=== PATIENT | male | born 1985 | race Two or more races ===

== ENCOUNTER 2020-04-30 17:48 | Inpatient (IN) | payer MEDICARE, MEDICAID ==
[~2020-04-30] VITALS: Ht 180.3 cm; Wt 150.1 kg
[2020-04-30] MEDS ORDERED: Lactulose 20gm/30ml UDC ORAL PRN (22:15)
[2020-04-30] MEDS ORDERED: Sennosides 8.6mg tab ORAL PRN (22:15)
[2020-05-01] VITALS: BP 139/81
[2020-05-01] MEDS: HYDROmorphone 1mg/ml Carpuject IVP PRN ×5 (02:53→21:09)
[2020-05-01 04:00] VITALS: BP 133/84
[2020-05-01] MEDS: NovoLOG Insulin Flexpen SUBQ SCH ×3 (06:30→21:17)
[2020-05-01 08:00] VITALS: BP 154/92
[2020-05-01] MEDS: Metoprolol Tartrate 50mg tab ORAL SCH ×2 (08:32→21:00)
[2020-05-01] MEDS: Brimonidine 0.2% Opth Sol RIGHT EYE SCH ×2 (08:33→17:10)
[2020-05-01] MEDS: timoloL maleate 0.5% Op Soln 2.5ml RIGHT EYE SCH ×2 (08:33→17:10)
[2020-05-01] MEDS ORDERED: Levemir Flexpen SUBQ SCH (09:00)
--- NOTE | 2020-05-01 09:30 | History and Physical Report ---
DATE OF ADMISSION: 04/30/2020 CHIEF COMPLAINT: Chest pain. HISTORY OF PRESENT ILLNESS: The patient is a 35-year-old male. He has a history of end-stage renal disease and hypertension. He has a history of eye enucleation, hypertensive heart disease, gastroparesis, Charcot foot, diabetic neuropathy and nephropathy, presented from home with complaints of a near syncopal episode. The patient was apparently ambulating at his home. He became dizzy and according to the patient nearly passed out. He fell sideways on to a turtle tank, and then on to the table that the tank was on top. He sustained a laceration to the underneath of his arm, presented to the office with complaints of difficulty breathing and chest pain. Pain was excruciating and could not be controlled with pain medications and because of concern about a possible syncopal episode, he is now admitted for further evaluation and care. The patient denies any fevers or chills. He has had no cough. Denies any ill contacts. PAST MEDICAL HISTORY: As above. PAST SURGICAL HISTORY: Includes bilateral upper extremity AV fistula, eye enucleation. CURRENT MEDICATIONS: Reconciled and reviewed. ALLERGIES: Include oxycodone. FAMILY HISTORY: Significant for diabetes and stroke. SOCIAL HISTORY: Negative for tobacco, ethanol, or drugs. REVIEW OF SYSTEMS: GENERAL: No fevers or chills. HEENT: No headaches or visual changes. CARDIOPULMONARY: Positive left-sided chest pain. Mild shortness of breath. GASTROINTESTINAL: No nausea or vomiting. GENITOURINARY: No urgency or frequency. MUSCULOSKELETAL: No joint pain or swelling. NEUROLOGIC: No history of seizures. PHYSICAL EXAMINATION: VITAL SIGNS: Temperature 97.5, pulse 81, respirations 19, blood pressure 154/92. GENERAL: The patient is a well-developed male. He is significantly overweight. HEENT: Head is normocephalic and atraumatic. He does have a rash on his forehead. NECK: Supple. There is no jugular venous distention. HEART: Regular rate and rhythm without murmurs, rubs, or gallops. LUNGS: Clear to auscultation bilaterally. ABDOMEN: Soft, nontender, nondistended. EXTREMITIES: No clubbing or cyanosis. Over the left chest wall, there is noted to be ecchymosis and severe tenderness to palpation. LABORATORY DATA: Pending. ASSESSMENT: This is a 35-year-old male with a prior history of hypertension, diabetes, end-stage renal disease, and gastroparesis, admitted with near syncopal episode and fall with chest pain. PLAN: 1. Check troponin. 2. CT scan of the chest. 3. Continue outpatient blood pressure regimen. 4. IV pain medications as needed. 5. Cardiology evaluation. 6. Renal consultation for continuation of the patient's hemodialysis. Александр Sandoval M.D. DR: COURT JOB#: [id number] CC:
[2020-05-01 12:00] VITALS: BP 154/92
--- NOTE | 2020-05-01 13:45 | Diagnostic Imaging Report ---
EXAM: CT CT Chest no Contrast CLINICAL HISTORY: Chest pain. TECHNIQUE: Axial images obtained through the chest without contrast. All CT scans at this facility are performed using dose modulation techniques as appropriate to a performed exam including the following: automated exposure control with adjustment of the mA and/or kV according to patient size. RADIATION DOSE: CTDIvol: 38.70 mGy DLP: 1492.1 mGy-cm Dose information generated by the CT scanner is available in PACS. COMPARISON: None FINDINGS: Alveolar atelectasis noted medial right upper lobe. Lungs are otherwise clear. Cardiac and mediastinal structures are within normal limits. There is no pathologic size adenopathy. There is no effusion. A vascular stent identified in the right axilla. Limited images through the upper abdomen show fatty change of the liver. Right hemidiaphragm is elevated. IMPRESSION: MILD HAZY ATELECTATIC CHANGES RIGHT UPPER LUNG. NO ACUTE CARDIOPULMONARY DISEASE DEMONSTRATED.
[2020-05-01] MEDS ORDERED: HYDROmorphone 1mg/ml Carpuject IVP PRN (14:00)
[2020-05-01 16:00] VITALS: BP 158/96
[2020-05-01] MEDS ORDERED: NovoLOG Insulin Flexpen SUBQ SCH (16:30)
--- NOTE | 2020-05-01 17:30 | Consultation ---
DATE OF CONSULTATION: 05/01/2020 NEPHROLOGY CONSULTATION CONSULTING PHYSICIAN: Alex Martínez MD. REFERRING PHYSICIAN: Александр Sandoval MD. REASON FOR CONSULTATION: End-stage renal disease. HISTORY OF PRESENT ILLNESS: The patient is a 35-year-old man who has been on dialysis for about 8 years, has a history of diabetes, hypertension, and obesity. He apparently had an accidental ground-level fall and had a contusion to his chest and he is being admitted for pain management. He apparently had a laceration on the underneath of his arm. He complained of shortness of breath and chest pain when he was seen by Dr. Sandoval. There is a concern about possible syncopal episode. The patient gains large amounts of fluids and often has four to five kilos removed on each dialysis and he gets dialysis five days a week on Thursday, Thursday, , Thursday and Thursday. ALLERGIES: Oxycodone. HABITS: He was a smoker and quit several years ago. Denies alcohol or drugs. PAST SURGICAL HISTORY: Include right upper arm AV fistula, which is the current access, prior AV access in the left arm and eye surgeries bilaterally. SYSTEM REVIEW: HEAD, EYES, EARS, NOSE, AND THROAT: He is blind in his right eye. He has had diabetic retinopathy and retinal surgery and cataract surgery. Hearing is good. ENDOCRINE: Diabetes as above. No known thyroid disease. PULMONARY: Current shortness of breath, mild. No history of asthma or TB. CARDIAC: Denies angina or AK. There is a history of hypertension. GASTROINTESTINAL: No nausea, vomiting, or abdominal pain. GENITOURINARY: No dysuria or hematuria. NEUROLOGIC: No CVA or seizures. He has diabetic neuropathy and Charcot joints in the feet MUSCULOSKELETAL: No inflammatory arthritis. PHYSICAL EXAMINATION: GENERAL: The patient is alert, obese man, sitting up at the edge of the bed in no acute distress. VITAL SIGNS: Temperature 97.7, pulse 79, respirations 20, and blood pressure 154/92. HEAD EYES, EARS, NOSE, AND THROAT: There is mild periorbital edema. Ocular motions intact in all directions. Oral mucosa moist. NECK: No adenopathy. LUNGS: Clear. HEART: Regular rhythm. Distant heart sounds. No murmur heard. ABDOMEN: Soft without organomegaly or masses. He is obese. EXTREMITIES: Show trace edema. No cyanosis. SKIN: There is some scabs and scattered excoriations. NEUROLOGIC: He is alert and oriented. Moves all extremities. Cranial nerves are intact. LABORATORY AND DIAGNOSTIC DATA: Labs are pending at the time of this dictation. IMPRESSION: 1. End-stage renal disease. 2. Chronic fluid overload. 3. Insulin dependent diabetes. 4. Hypertension. 5. Obesity. 6. History of recurrent fluid overload requiring 5 times a week dialysis. 7. History of diabetic retinopathy. 8. History of diabetic neuropathy. 9. History of chest contusion. 10. Pain management. PLAN: All orders have been reviewed for end-stage renal disease. We will watch him closely in view of his comorbidities. Thank you so much. Alex Martínez M.D. DR: LAURO JOB#: [id number] CC:
[2020-05-01] MEDS: Levemir Flexpen SUBQ SCH (18:32)
[2020-05-01 20:00] VITALS: BP 162/91
[2020-05-01] MEDS ORDERED: Heparin 5000 units/ml inj SUBQ SCH (21:00)
[2020-05-01 23:20] LABS: BASOPHILS % (AUTO) 1.1 % (0.0-2.0); EOSINOPHILS % (AUTO) 2.8 % (0.0-3.0); HEMATOCRIT 42.3 % (42.0-52.0); HEMOGLOBIN 13.7 G/DL (14.2-18.0); LYMPHOCYTES % (AUTO) 14.6 % (20.0-45.0); MEAN CORPUSCULAR VOLUME 104 FL (80-99); MONOCYTES % (AUTO) 8.9 % (1.0-10.0); NEUTROPHILS % (AUTO) 72.7 % (45.0-75.0); PLATELET COUNT 235 K/UL (150-450); RED BLOOD COUNT 4.07 M/UL (4.70-6.10); RED CELL DISTRIBUTION WIDTH 15.1 % (11.6-14.8); WHITE BLOOD COUNT 10.3 K/UL (4.8-10.8)
[2020-05-01 23:28] LABS: ANION GAP 14 mmol/L (5-15); BLOOD UREA NITROGEN 85 mg/dL (7-18); CALCIUM 8.9 MG/DL (8.5-10.1); CARBON DIOXIDE 26 MMOL/L (21-32); CHLORIDE 92 MMOL/L (98-107); CREATININE 14.1 MG/DL (0.55-1.30); POTASSIUM 4.9 MMOL/L (3.5-5.1); SODIUM 132 MMOL/L (136-145)
[2020-05-02] VITALS: BP 135/73
--- NOTE | 2020-05-02 01:12 | Cardiology Progress Note ---
Subjective DATE OF SERVICE: May 01, [address] chest reveals right lung atelectasis. Has Chest pain with and without movement and still c/o SOB. Objective Last 24 Hour Vital Signs Date Time Temp Pulse Resp B/P (MAP) Pulse Ox O2 Delivery O2 Flow Rate FiO2 05/02/20 00:00 97.3 82 24 135/73 (93) 96 05/01/20 21:00 Room Air 05/01/20 21:00 83 162/91 05/01/20 20:00 97.3 83 24 162/91 (114) 95 05/01/20 16:00 98.2 78 20 158/96 (116) 96 05/01/20 12:00 97.7 79 20 154/92 (112) 96 05/01/20 09:00 Room Air 05/01/20 08:32 81 154/92 05/01/20 08:00 97.5 81 19 154/92 (112) 96 05/01/20 04:00 98.0 92 18 133/84 (100) 98 HEENT: normal ENT inspection, other - blind LUNGS: no respiratory distress, diminished breath sounds - right CARDIAC: normal rate, regular rhythm, normal S1 and S2 ABDOMEN: normal bowel sounds, non tender, soft, no organomegaly EXTREMITIES: normal range of motion, non-tender, other - Bruit palpable over left upper extremity AV fistula Laboratory Tests Test 05/01/20 23:00 White Blood Count 10.3 K/UL (4.8-10.8) Red Blood Count 4.07 M/UL (4.70-6.10) L Hemoglobin 13.7 G/DL (14.2-18.0) L Hematocrit 42.3 % (42.0-52.0) Mean Corpuscular Volume 104 FL (80-99) H Mean Corpuscular Hemoglobin 33.6 PG (27.0-31.0) H Mean Corpuscular Hemoglobin Concent 32.4 G/DL (32.0-36.0) Red Cell Distribution Width 15.1 % (11.6-14.8) H Platelet Count 235 K/UL (150-450) Mean Platelet Volume 9.5 FL (6.5-10.1) Neutrophils (%) (Auto) 72.7 % (45.0-75.0) Lymphocytes (%) (Auto) 14.6 % (20.0-45.0) L Monocytes (%) (Auto) 8.9 % (1.0-10.0) Eosinophils (%) (Auto) 2.8 % (0.0-3.0) Basophils (%) (Auto) 1.1 % (0.0-2.0) Sodium Level 132 MMOL/L (136-145) L Potassium Level 4.9 MMOL/L (3.5-5.1) Chloride Level 92 MMOL/L (98-107) L Carbon Dioxide Level 26 MMOL/L (21-32) Anion Gap 14 mmol/L (5-15) Blood Urea Nitrogen 85 mg/dL (7-18) H Creatinine 14.1 MG/DL (0.55-1.30) H Estimat Glomerular Filtration Rate 4.0 mL/min (>60) Glucose Level 248 MG/DL (74-106) H Calcium Level 8.9 MG/DL (8.5-10.1) Hepatitis B Surface Antigen Pending Hepatitis C Antibody Pending Assessment/Plan Assessment/Plan Suspected orthostatic near-syncope Chest wall contusion - possible cardiac contusion ESRD Hypertension/HHD Blindness IRDM with multiple complications Functional LUE AV fistula Pain control Avoid orthostatic potential and low BP; consider fluid challenge. HD/UF Insulin titration PT/OT Vahid Owusu MD May 02, 2020 01:12
--- NOTE | 2020-05-02 01:45 | Consultation ---
DATE OF CONSULTATION: 04/30/2020 CARDIOLOGY CONSULTATION CONSULTING PHYSICIAN: Vahid Owusu MD. REQUESTING PHYSICIAN: Александр Sandoval MD. REASON FOR CONSULTATION: Chest pain following chest wall contusion sustained due to a syncopal episode. HISTORY OF PRESENT ILLNESS: This is a 35-year-old male with insulin-requiring diabetes mellitus complicated with end-stage renal disease and blindness sustained a near syncopal episode. He describes this as dizziness, while ambulating he nearly passed out. He fell sideways and onto turtle tank and subsequently onto a table. He sustained lacerations under his left arm with trauma to his chest wall and subsequently had difficulty breathing and persisting pain. The pain could not be controlled with oral therapy. The patient denied any subsequent dizzy spells or loss of consciousness. I have been asked to assist with cardiovascular care at this time. The patient has a history of hypertension and orthostatics symptoms. He has had hypotensive episodes following dialysis at times as well as autonomic dysfunction due to his brittle diabetes. He has had outpatient echocardiogram within the last several months that revealed a normal ejection fraction, concentric left ventricular hypertrophy, and diastolic relaxation abnormality. There is no history of cardiac arrhythmias, rheumatic heart disease, endocarditis, obstructive coronary artery disease. He does have accelerated atherosclerosis due to his advanced diabetes. PAST MEDICAL HISTORY: Insulin-requiring diabetes mellitus, right eye enucleation, retinopathy with blindness, diabetic nephropathy with end-stage renal disease on hemodialysis, hypertensive heart disease, orthostatic hypotension, diabetic neuropathy with gastroparesis, Charcot foot, history of multiple prior AV fistulas, current right upper extremity AV fistula is functional, left upper extremity AV fistula site is nonfunctional. SOCIAL HISTORY: Prior smoker. Quit several years ago. No alcohol or substance abuse. Lives with his mother. FAMILY HISTORY: Notable for brittle diabetes in all his family members. ALLERGIES: Include oxycodone. MEDICATIONS: Medications prior to admission reviewed and reconciled. REVIEW OF SYSTEMS: He is legally blind. His hearing is good. His diabetes is brittle with multiple complications. He has been on anti-lipid therapy. There is no history of thyroid disorder. There is no history of asthma or abnormal blood clotting. He is dialyzed five times a week. He has not had any change in bowel habits. There is no history of seizure or stroke. He has had Charcot joint of his feet. PHYSICAL EXAMINATION: GENERAL: Moderately obese, appears older than stated age, in moderate distress due to pain. VITAL SIGNS: Afebrile, blood pressure 139/81, pulse 99, respiratory rate 17. HEENT: Blindness. Rash on forehead. NECK: Supple. LUNGS: Clear with splinting. CARDIAC: Regular. Normal S1, S2 with no murmur, rub, or gallop. ABDOMEN: Soft. EXTREMITIES: No edema. Left chest wall has ecchymoses and tenderness to palpation. DIAGNOSTIC DATA: EKG is pending. IMPRESSION: 1. Chest wall contusion. 2. Near syncopal episode likely orthostatic related, rule out cardiac contusion. 3. End-stage renal disease. 4. Blindness. 5. Insulin-requiring diabetes with multiple complications. 6. History of hypertension and hypertensive heart disease. 7. Accelerated atherosclerosis. PLAN: 1. Pain control. 2. Respiratory hygiene. 3. CT scan of the chest. 4. Review EKG. 5. Consider echocardiogram. 6. Titrate insulin regimen. 7. Monitor orthostatics. 8. Maintain adequate hydration with adjustment of ultrafiltration. Vahid Owusu M.D. DR: uYnior JOB#: [id number] CC:
[2020-05-02] MEDS: HYDROmorphone 1mg/ml Carpuject IVP PRN ×5 (02:50→22:37)
[2020-05-02 04:00] VITALS: BP 141/90
[2020-05-02] MEDS: NovoLOG Insulin Flexpen SUBQ SCH ×4 (06:35→21:00)
[2020-05-02 08:00] VITALS: BP 146/89
[2020-05-02] MEDS: Metoprolol Tartrate 50mg tab ORAL SCH ×2 (09:00→21:00)
[2020-05-02] MEDS ORDERED: Brimonidine 0.2% Opth Sol RIGHT EYE SCH (09:00)
[2020-05-02] MEDS ORDERED: timoloL maleate 0.5% Op Soln 2.5ml RIGHT EYE SCH (09:00)
[2020-05-02] MEDS ORDERED: Heparin 5000 units/ml inj SUBQ SCH (09:00)
[2020-05-02] MEDS: Levemir Flexpen SUBQ SCH ×2 (09:10→17:15)
--- NOTE | 2020-05-02 10:57 | Nephrology Progress Note ---
Assessment/Plan Problem List: (1) Obstructive sleep apnea (2) Morbid obesity due to excess calories (3) Nephropathy due to secondary diabetes (4) CHF (congestive heart failure) (5) End stage kidney disease (6) Contusion Plan continue with frequent dialysis as chronic fluid overload, cpap, pain regimen per dr newell Subjective Constitutional: Reports: weakness HEENT: Reports: no symptoms Genitourinary: Reports: no symptoms Neurologic/Psychiatric: Reports: no symptoms Objective Objective Last 24 Hour Vital Signs Date Time Temp Pulse Resp B/P (MAP) Pulse Ox O2 Delivery O2 Flow Rate FiO2 05/02/20 09:00 81 146/89 05/02/20 08:00 98.1 81 20 146/89 (108) 95 05/02/20 04:00 97.7 84 20 141/90 (107) 95 05/02/20 00:00 97.3 82 24 135/73 (93) 96 05/01/20 21:00 Room Air 05/01/20 21:00 83 162/91 05/01/20 20:00 97.3 83 24 162/91 (114) 95 05/01/20 16:00 98.2 78 20 158/96 (116) 96 05/01/20 12:00 97.7 79 20 154/92 (112) 96 Intake and Output 05/01/20 05/02/20 19:00 07:00 Intake Total 1200 ml 700 ml Output Total 5000 ml Balance 1200 ml -4300 ml Intake Oral 1200 ml 700 ml Output Hemodialysis UF 5000 ml # Voids 5 2 Laboratory Tests 05/01/20 23:00: White Blood Count 10.3, Red Blood Count 4.07L, Hemoglobin 13.7L, Hematocrit 42.3 , Mean Corpuscular Volume 104H, Mean Corpuscular Hemoglobin 33.6H, Mean Corpuscular Hemoglobin Concent 32.4, Red Cell Distribution Width 15.1H, Platelet Count 235, Mean Platelet Volume 9.5, Neutrophils (%) (Auto) 72.7, Lymphocytes (%) (Auto) 14.6L, Monocytes (%) (Auto) 8.9, Eosinophils (%) (Auto) 2.8, Basophils (%) (Auto) 1.1, Sodium Level 132L, Potassium Level 4.9, Chloride Level 92L, Carbon Dioxide Level 26, Anion Gap 14, Blood Urea Nitrogen 85H, Creatinine 14.1H, Estimat Glomerular Filtration Rate 4.0, Glucose Level 248H, Calcium Level 8.9, Hepatitis B Surface Antigen [Pending], Hepatitis C Antibody [ Pending] Height (Feet): 5 Height (Inches): 11.00 Weight (Pounds): 324 General Appearance: no apparent distress, obese, morbidly obese EENT: normal ENT inspection Neck: normal alignment Cardiovascular: regular rhythm Respiratory/Chest: lungs clear Abdomen: non tender Extremities: no edema 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
[2020-05-02 12:00] VITALS: BP 137/85
--- NOTE | 2020-05-02 14:18 | General Progress Note ---
Assessment/Plan Problem List: (1) End stage kidney disease ICD Codes: N18.6 - End stage renal disease SNOMED: 02943887 (2) Contusion ICD Codes: T14.8XXA - Other injury of unspecified body region, initial encounter SNOMED: 692856333 (3) CHF (congestive heart failure) ICD Codes: I50.9 - Heart failure, unspecified SNOMED: 44735935 (4) Obstructive sleep apnea ICD Codes: G47.33 - Obstructive sleep apnea (adult) (pediatric) SNOMED: 57531042 (5) Nephropathy due to secondary diabetes ICD Codes: E13.21 - Other specified diabetes mellitus with diabetic nephropathy SNOMED: 8809243, 356150490 (6) Morbid obesity due to excess calories ICD Codes: E66.01 - Morbid (severe) obesity due to excess calories SNOMED: 510854568, 382010241 Status: stable Assessment/Plan: Patient continues to have severe pain. Required IV pain medications around-the- clock. CT scan shows no evidence of any fracture. Will check a troponin placed on monitor. Check a venous duplex of the legs to rule out DVT consider VQ scan of the chest rule out PE cardiology follow-up. Dialysis per renal. Subjective ROS Limited/Unobtainable: No Constitutional: Reports: malaise, weakness HEENT: Reports: no symptoms Cardiovascular: Reports: chest pain Respiratory: Reports: cough, shortness of breath Gastrointestinal/Abdominal: Reports: no symptoms Genitourinary: Reports: no symptoms Neurologic/Psychiatric: Reports: no symptoms Endocrine: Reports: no symptoms Hematologic/Lymphatic: Reports: no symptoms Allergies: Coded Allergies: ACETAMINOPHEN (Verified Allergy, Mild, 04/30/20) OXYCODONE (Verified Allergy, Mild, 04/30/20) All Systems: reviewed and negative except above Subjective Patient continues to complain of left-sided chest pain and shortness of breath. Denies fevers or chills. No cough or congestion. Tolerated HD without incident. Requiring IV pain medications [id number] Objective Last 24 Hour Vital Signs Date Time Temp Pulse Resp B/P (MAP) Pulse Ox O2 Delivery O2 Flow Rate FiO2 05/02/20 12:00 97.0 75 20 137/85 (102) 95 05/02/20 09:00 Room Air 05/02/20 09:00 81 146/89 05/02/20 08:00 98.1 81 20 146/89 (108) 95 05/02/20 04:00 97.7 84 20 141/90 (107) 95 05/02/20 00:00 97.3 82 24 135/73 (93) 96 05/01/20 21:00 Room Air 05/01/20 21:00 83 162/91 05/01/20 20:00 97.3 83 24 162/91 (114) 95 05/01/20 16:00 98.2 78 20 158/96 (116) 96 Intake and Output 05/01/20 05/02/20 19:00 07:00 Intake Total 1200 ml 700 ml Output Total 5000 ml Balance 1200 ml -4300 ml Intake Oral 1200 ml 700 ml Output Hemodialysis UF 5000 ml # Voids 5 2 Laboratory Tests 05/01/20 23:00: White Blood Count 10.3, Red Blood Count 4.07L, Hemoglobin 13.7L, Hematocrit 42.3 , Mean Corpuscular Volume 104H, Mean Corpuscular Hemoglobin 33.6H, Mean Corpuscular Hemoglobin Concent 32.4, Red Cell Distribution Width 15.1H, Platelet Count 235, Mean Platelet Volume 9.5, Neutrophils (%) (Auto) 72.7, Lymphocytes (%) (Auto) 14.6L, Monocytes (%) (Auto) 8.9, Eosinophils (%) (Auto) 2.8, Basophils (%) (Auto) 1.1, Sodium Level 132L, Potassium Level 4.9, Chloride Level 92L, Carbon Dioxide Level 26, Anion Gap 14, Blood Urea Nitrogen 85H, Creatinine 14.1H, Estimat Glomerular Filtration Rate 4.0, Glucose Level 248H, Calcium Level 8.9, Hepatitis B Surface Antigen Negative, Hepatitis C Antibody [ Pending] Height (Feet): 5 Height (Inches): 11.00 Weight (Pounds): 324 General Appearance: WD/WN, alert Neck: supple Cardiovascular: normal peripheral pulses, normal rate Respiratory/Chest: lungs clear, normal breath sounds, no respiratory distress, no accessory muscle use Abdomen: normal bowel sounds, non tender, soft, no organomegaly Edema: no edema noted Arm (L), no edema noted Arm (R) Александр Sandoval MD May 02, 2020 14:18
[2020-05-02 16:00] VITALS: BP 138/87
[2020-05-02] MEDS ORDERED: Heparin Sod 1000 units/ml 10ml IV PRN (16:00)
[2020-05-02] MEDS ORDERED: Sennosides 8.6mg tab ORAL PRN (16:00)
[2020-05-02] MEDS ORDERED: Lactulose 20gm/30ml UDC ORAL PRN (18:00)
[2020-05-02 20:00] VITALS: BP 99/53
[2020-05-02] MEDS: Brimonidine 0.2% Opth Sol RIGHT EYE SCH (21:13)
[2020-05-02] MEDS: timoloL maleate 0.5% Op Soln 2.5ml RIGHT EYE SCH (21:14)
[2020-05-03] VITALS: BP 108/53
--- NOTE | 2020-05-03 01:27 | Cardiology Progress Note ---
Subjective DATE OF SERVICE: May 02, 2020 Still with left sided chest pain and SOB. Hypotensive during HD/UF and req'd fluid challenges. CT chest reveals right lung atelectasis. Objective Last 24 Hour Vital Signs Date Time Temp Pulse Resp B/P (MAP) Pulse Ox O2 Delivery O2 Flow Rate FiO2 05/03/20 00:00 78 05/03/20 00:00 98.1 85 14 108/53 (71) 95 05/02/20 21:00 Room Air 05/02/20 21:00 84 99/53 05/02/20 20:00 98.1 84 14 99/53 (68) 97 05/02/20 20:00 85 05/02/20 16:00 96.7 76 20 138/87 (104) 98 05/02/20 16:00 78 05/02/20 12:00 97.0 75 20 137/85 (102) 95 05/02/20 09:00 Room Air 05/02/20 09:00 81 146/89 05/02/20 08:00 98.1 81 20 146/89 (108) 95 05/02/20 04:00 97.7 84 20 141/90 (107) 95 HEENT: normal ENT inspection, other - blind LUNGS: no respiratory distress, diminished breath sounds - right CARDIAC: normal rate, regular rhythm, normal S1 and S2 ABDOMEN: normal bowel sounds, non tender, soft, no organomegaly EXTREMITIES: normal range of motion, non-tender, other - Bruit palpable over left upper extremity AV fistula Laboratory Tests Test 05/02/20 15:58 05/02/20 16:05 POC Whole Blood Glucose 232 MG/DL (74-106) H Troponin I 0.000 ng/mL (0.000-0.056) Assessment/Plan Assessment/Plan Suspected orthostatic near-syncope Hypotension suggests hypovolemic shock Chest wall contusion ESRD Hypertension/HHD Blindness IRDM with multiple complications Functional LUE AV fistula Possible cardiac contusion Pain control Avoid orthostatic potential and hypotension HD/UF Insulin titration Fluid challenge as needed Check EKG and 2D Echo PT/OT Vahid Owusu MD May 03, 2020 01:27
[2020-05-03] MEDS: HYDROmorphone 1mg/ml Carpuject IVP PRN ×5 (02:57→21:53)
[2020-05-03 04:00] VITALS: BP 147/90
[2020-05-03] MEDS: NovoLOG Insulin Flexpen SUBQ SCH ×4 (06:29→21:41)
[2020-05-03 08:00] VITALS: BP 178/103
[2020-05-03] MEDS: Metoprolol Tartrate 50mg tab ORAL SCH ×2 (08:28→21:00)
[2020-05-03] MEDS: timoloL maleate 0.5% Op Soln 2.5ml RIGHT EYE SCH ×2 (08:32→21:33)
[2020-05-03] MEDS: Brimonidine 0.2% Opth Sol RIGHT EYE SCH ×2 (08:32→21:34)
[2020-05-03] MEDS: Levemir Flexpen SUBQ SCH ×2 (08:35→17:00)
[2020-05-03] MEDS: Heparin 5000 units/ml inj SUBQ SCH ×2 (08:37→21:37)
--- NOTE | 2020-05-03 10:08 | Diagnostic Imaging Report ---
Indication: Reason For Exam: Bilateral leg pain Technique: Venous Duplex Scan Hugo Leg Comparison: None. Findings: Duplex and compression ultrasound of the lower extremity veins demonstrates the femoral and popliteal veins to be normal in caliber and normally compressible. There is no evidence of thrombosis. Normal respiratory variation and augmentation is noted. Ultrasound of the calf veins bilaterally demonstrates no gross abnormality but veins are not visualized. Impression: No evidence of thrombosis in the femoral or popliteal veins. No gross evidence of thrombus in the calf veins
[2020-05-03] MEDS ORDERED: Heparin Sod 1000 units/ml 10ml IV SCH (11:00)
--- NOTE | 2020-05-03 11:37 | Nephrology Progress Note ---
Assessment/Plan Problem List: (1) Obstructive sleep apnea (2) Morbid obesity due to excess calories (3) Nephropathy due to secondary diabetes (4) CHF (congestive heart failure) (5) End stage kidney disease (6) Contusion Plan continue with frequent dialysis as chronic fluid overload, cpap, pain regimen per dr newell Subjective Constitutional: Reports: weakness HEENT: Reports: no symptoms Genitourinary: Reports: no symptoms Neurologic/Psychiatric: Reports: no symptoms Objective Objective Last 24 Hour Vital Signs Date Time Temp Pulse Resp B/P (MAP) Pulse Ox O2 Delivery O2 Flow Rate FiO2 05/03/20 08:28 83 147/90 05/03/20 08:19 Room Air 05/03/20 08:00 97.9 79 21 178/103 (128) 98 05/03/20 08:00 83 05/03/20 04:07 75 05/03/20 04:00 97.7 80 14 147/90 (109) 95 05/03/20 00:00 78 05/03/20 00:00 98.1 85 14 108/53 (71) 95 05/02/20 21:00 Room Air 05/02/20 21:00 84 99/53 05/02/20 20:00 98.1 84 14 99/53 (68) 97 05/02/20 20:00 85 05/02/20 16:00 96.7 76 20 138/87 (104) 98 05/02/20 16:00 78 05/02/20 12:00 97.0 75 20 137/85 (102) 95 Intake and Output 05/02/20 05/03/20 19:00 07:00 Intake Total 1080 ml 600 ml Balance 1080 ml 600 ml Intake Oral 1080 ml 600 ml Laboratory Tests 05/02/20 15:58: POC Whole Blood Glucose 232H 05/02/20 16:05: Troponin I 0.000 Height (Feet): 5 Height (Inches): 11.00 Weight (Pounds): 315 General Appearance: no apparent distress, morbidly obese EENT: normal ENT inspection Neck: normal alignment Cardiovascular: regular rhythm Respiratory/Chest: lungs clear Abdomen: soft Extremities: no edema 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
[2020-05-03 12:00] VITALS: BP 155/96
[2020-05-03 16:00] VITALS: BP 179/100
[2020-05-03 20:00] VITALS: BP 121/67
--- NOTE | 2020-05-03 21:24 | General Progress Note ---
Assessment/Plan Problem List: (1) End stage kidney disease ICD Codes: N18.6 - End stage renal disease SNOMED: 34831850 (2) Contusion ICD Codes: T14.8XXA - Other injury of unspecified body region, initial encounter SNOMED: 437351497 (3) CHF (congestive heart failure) ICD Codes: I50.9 - Heart failure, unspecified SNOMED: 69621851 (4) Obstructive sleep apnea ICD Codes: G47.33 - Obstructive sleep apnea (adult) (pediatric) SNOMED: 72727530 (5) Nephropathy due to secondary diabetes ICD Codes: E13.21 - Other specified diabetes mellitus with diabetic nephropathy SNOMED: 5010853, 061450902 (6) Morbid obesity due to excess calories ICD Codes: E66.01 - Morbid (severe) obesity due to excess calories SNOMED: 009948208, 536684062 Status: stable Assessment/Plan: Patient continues to have severe pain. Required IV pain medications around-the- clock. CT scan shows no evidence of any fracture. Will check a troponin placed on monitor. Check a venous duplex of the legs to rule out DVT consider VQ scan of the chest rule out PE cardiology follow-up. Dialysis per renal. Subjective ROS Limited/Unobtainable: No Constitutional: Reports: weakness HEENT: Reports: no symptoms Cardiovascular: Reports: chest pain Respiratory: Reports: shortness of breath Gastrointestinal/Abdominal: Reports: no symptoms Genitourinary: Reports: no symptoms Neurologic/Psychiatric: Reports: no symptoms Endocrine: Reports: no symptoms Hematologic/Lymphatic: Reports: no symptoms Allergies: Coded Allergies: ACETAMINOPHEN (Verified Allergy, Mild, 04/30/20) OXYCODONE (Verified Allergy, Mild, 04/30/20) All Systems: reviewed and negative except above Subjective continued chest pain. +sob with inspiration. requiring iv pain meds ATC for pain control. no fevers. troponin neg. Objective Last 24 Hour Vital Signs Date Time Temp Pulse Resp B/P (MAP) Pulse Ox O2 Delivery O2 Flow Rate FiO2 05/03/20 16:00 88 05/03/20 16:00 97.4 86 19 179/100 (126) 97 05/03/20 12:00 97.1 80 20 155/96 (115) 97 05/03/20 12:00 81 05/03/20 08:28 83 147/90 05/03/20 08:19 Room Air 05/03/20 08:00 97.9 79 21 178/103 (128) 98 05/03/20 08:00 83 05/03/20 04:07 75 05/03/20 04:00 97.7 80 14 147/90 (109) 95 05/03/20 00:00 78 05/03/20 00:00 98.1 85 14 108/53 (71) 95 Intake and Output 05/02/20 05/03/20 19:00 07:00 Intake Total 1080 ml 600 ml Balance 1080 ml 600 ml Intake Oral 1080 ml 600 ml Height (Feet): 5 Height (Inches): 11.00 Weight (Pounds): 315 Objective General Appearance: WD/WN, alert Neck: supple Cardiovascular: normal peripheral pulses, normal rate Respiratory/Chest: lungs clear, normal breath sounds, no respiratory distress, no accessory muscle use Abdomen: normal bowel sounds, non tender, soft, no organomegaly Edema: no edema noted Arm (L), no edema noted Arm (R) Александр Sandoval MD May 03, 2020 21:24
[2020-05-04] VITALS (7 sets, daily range): BP systolic 121–167; BP diastolic 57–104
[2020-05-04] MEDS ORDERED: HydrALAZINE 25mg tab ORAL PRN (00:45)
--- NOTE | 2020-05-04 00:48 | Cardiology Progress Note ---
Subjective Still with pain requiring IV medx. BP lability persists. 2DEcho with small amount of right sided pericardial fluid. CT chest reveals right lung atelectasis. Has Chest pain with and without movement and still c/o SOB. Objective Last 24 Hour Vital Signs Date Time Temp Pulse Resp B/P (MAP) Pulse Ox O2 Delivery O2 Flow Rate FiO2 05/04/20 00:00 97.9 72 20 131/72 (91) 95 05/03/20 22:23 97.4 05/03/20 21:00 82 124/73 05/03/20 20:00 97.1 82 20 121/67 (85) 96 05/03/20 16:00 88 05/03/20 16:00 97.4 86 19 179/100 (126) 97 05/03/20 12:00 97.1 80 20 155/96 (115) 97 05/03/20 12:00 81 05/03/20 08:28 83 147/90 05/03/20 08:19 Room Air 05/03/20 08:00 97.9 79 21 178/103 (128) 98 05/03/20 08:00 83 05/03/20 04:07 75 05/03/20 04:00 97.7 80 14 147/90 (109) 95 HEENT: normal ENT inspection, other - blind LUNGS: no respiratory distress, diminished breath sounds - right CARDIAC: normal rate, regular rhythm, normal S1 and S2 ABDOMEN: normal bowel sounds, non tender, soft, no organomegaly EXTREMITIES: normal range of motion, non-tender, other - Bruit palpable over left upper extremity AV fistula Assessment/Plan Assessment/Plan Suspected orthostatic near-syncope Chest wall contusion - possible cardiac contusion Pericardial effusion may be secondary to cardiac contusion ESRD Hypertension/HHD - hypertensive urgency Blindness IRDM with multiple complications Functional LUE AV fistula Pain control Add prn antiHTN therapy HD/UF Insulin titration PT/OT Vahid Owusu MD May 04, 2020 00:48
[2020-05-04] MEDS: HYDROmorphone 1mg/ml Carpuject IVP PRN ×5 (02:26→22:34)
[2020-05-04] MEDS ORDERED: Heparin Sod 1000 units/ml 10ml IV PRN (06:00)
[2020-05-04] MEDS: NovoLOG Insulin Flexpen SUBQ SCH ×4 (06:45→21:00)
[2020-05-04] MEDS: Metoprolol Tartrate 50mg tab ORAL SCH ×2 (08:35→22:23)
[2020-05-04] MEDS: Heparin 5000 units/ml inj SUBQ SCH ×2 (08:36→21:00)
[2020-05-04] MEDS: Levemir Flexpen SUBQ SCH ×2 (08:37→17:20)
[2020-05-04] MEDS: Brimonidine 0.2% Opth Sol RIGHT EYE SCH ×2 (09:21→22:21)
[2020-05-04] MEDS: timoloL maleate 0.5% Op Soln 2.5ml RIGHT EYE SCH ×2 (09:22→22:21)
--- NOTE | 2020-05-04 10:10 | Nephrology Progress Note ---
Assessment/Plan Problem List: (1) Obstructive sleep apnea (2) Morbid obesity due to excess calories (3) Nephropathy due to secondary diabetes (4) CHF (congestive heart failure) (5) End stage kidney disease (6) Contusion Plan continue with frequent dialysis as chronic fluid overload,UF -4000 last pm, cpap, pain regimen per dr newell, low grade temp states he has chronic dental infection and r foot wound seen regularly by plastic molder Subjective Constitutional: Reports: other - chest discomfort HEENT: Reports: no symptoms Genitourinary: Reports: no symptoms Neurologic/Psychiatric: Reports: no symptoms Objective Objective Last 24 Hour Vital Signs Date Time Temp Pulse Resp B/P (MAP) Pulse Ox O2 Delivery O2 Flow Rate FiO2 05/04/20 09:00 Room Air 05/04/20 08:35 89 134/89 05/04/20 08:11 97.6 05/04/20 08:00 91 05/04/20 08:00 99.4 91 18 167/104 (125) 97 05/04/20 04:00 82 05/04/20 04:00 97.6 78 18 141/80 (100) 96 05/04/20 00:00 75 05/04/20 00:00 97.9 72 20 131/72 (91) 95 05/03/20 21:00 82 124/73 05/03/20 21:00 Room Air 05/03/20 20:00 97.1 82 20 121/67 (85) 96 05/03/20 20:00 81 05/03/20 16:00 88 05/03/20 16:00 97.4 86 19 179/100 (126) 97 05/03/20 12:00 97.1 80 20 155/96 (115) 97 05/03/20 12:00 81 Intake and Output 05/03/20 05/04/20 19:00 07:00 Intake Total 960 ml 800 ml Output Total 4000 ml Balance 960 ml -3200 ml Intake Oral 960 ml 800 ml Output Hemodialysis UF 4000 ml Height (Feet): 5 Height (Inches): 11.00 Weight (Pounds): 322 General Appearance: no apparent distress, morbidly obese EENT: normal ENT inspection Neck: normal alignment Cardiovascular: regular rhythm Respiratory/Chest: lungs clear Abdomen: soft Extremities: no edema Alex Martínez MD May 04, 2020 10:10
--- NOTE | 2020-05-04 10:54 | Diagnostic Imaging Report ---
EXAM: NUCLEAR MEDICINE VENTILATION/PERFUSION SCAN. CLINICAL HISTORY: Chest pain and shortness of breath.. COMPARISON: None TECHNIQUE: Ventilation/perfusion studies performed. 44 mCi of technetium 99 DTPA is used for the ventilation portion. 5.5 mCi technetium 99 MAA was used for the perfusion portion. SPECT images are obtained in multiple planes. FINDINGS: There is homogeneous uptake identified in both ventilation and perfusion images. There is no perfusion defect or mismatch identified. Cardiac silhouette is within normal limits. There is no effusion. IMPRESSION: Unremarkable V/Q exam. No scintigraphic evidence of pulmonary embolism.
--- NOTE | 2020-05-04 12:01 | Consultation ---
History of Present Illness General Date patient seen: May 04, 2020 Present Illness HPI This is a 35-year-old with end-stage renal disease hypertension on dialysis through right arm fistula with known podiatry lower extremity that had a syncopal episode presented to [facility] for evaluation. Patient has been admitted for medical care and management is been improving since. Identified to have a abnormal wound on his right lower extremity foot therefore surgery was called to evaluate and assist with care. Patient seen, patient evaluated, chart reviewed. Denies any nausea vomiting fever chills at this time. States hemodialysis going well and he feels better. States he is been ambulating on the foot but does understand to minimize pressure on affected areas. Attempts to receive care as an outpatient. Labs noted imaging reviewed. Allergies: Coded Allergies: ACETAMINOPHEN (Verified Allergy, Mild, 04/30/20) OXYCODONE (Verified Allergy, Mild, 04/30/20) COVID-19 Screening Contact w/high risk pt: No Experienced COVID-19 symptoms?: No Patient History History Provided By: Patient, Medical Record, PMD Healthcare decision maker Resuscitation status Advanced Directive on File Past Medical/Surgical History Past Medical/Surgical History: (1) End stage kidney disease (2) Contusion (3) CHF (congestive heart failure) (4) Obstructive sleep apnea (5) Nephropathy due to secondary diabetes (6) Morbid obesity due to excess calories Review of Systems Review of Symptoms General ROS: no weight loss or fever Psychological ROS: no depression or mood changes, no memory loss Ophthalmic ROS: no visual changes or eye irritation ENT ROS: no nasal congestion, hearing loss, dizziness Allergy and Immunology ROS: no allergic symptoms or urticaria Hematological and Lymphatic ROS: no swollen glands, unusual bleeding or bruising Endocrine ROS: no polyuria, polydipsia, weight changes, temperature intolerance Respiratory ROS: no cough, shortness of breath, or wheezing Cardiovascular ROS: no chest pain or dyspnea on exertion Gastrointestinal ROS: denies abdominal pain, bright red blood in stool. Musculoskeletal ROS: no myalgias or arthralgias Neurological ROS: no TIA or stroke symptoms Dermatological ROS: no new or changing skin lesions, rashes or pruritis Physical Exam Physical Exam General appearance: alert, cooperative, no distress, appears stated age Head: Normocephalic, without obvious abnormality, atraumatic Eyes: conjunctivae/corneas clear. PERRL, EOM's intact. Fundi benign Throat: Lips, mucosa, and tongue normal. Teeth and gums normal Neck: supple, symmetrical, trachea midline, no adenopathy, thyroid: not enlarged, symmetric, no tenderness/mass/nodules, no carotid bruit and no JVD Lungs: clear to auscultation bilaterally Heart: regular rate and rhythm, S1, S2 normal, no murmur, click, rub or gallop Abdomen: soft, non-tender. Bowel sounds normal. No masses, no organomegaly Extremities: extremities see below Pulses: 2+ and symmetric Skin: Skin color, texture, turgor normal. No rashes or lesions Neurologic: Grossly normal Last 24 Hour Vital Signs Date Time Temp Pulse Resp B/P (MAP) Pulse Ox O2 Delivery O2 Flow Rate FiO2 05/04/20 09:00 Room Air 05/04/20 08:35 89 134/89 05/04/20 08:11 97.6 05/04/20 08:00 91 05/04/20 08:00 99.4 91 18 167/104 (125) 97 05/04/20 04:00 82 05/04/20 04:00 97.6 78 18 141/80 (100) 96 05/04/20 00:00 75 05/04/20 00:00 97.9 72 20 131/72 (91) 95 05/03/20 21:00 82 124/73 05/03/20 21:00 Room Air 05/03/20 20:00 97.1 82 20 121/67 (85) 96 05/03/20 20:00 81 05/03/20 16:00 88 05/03/20 16:00 97.4 86 19 179/100 (126) 97 05/03/20 12:00 97.1 80 20 155/96 (115) 97 05/03/20 12:00 81 Intake and Output 05/03/20 05/04/20 19:00 07:00 Intake Total 960 ml 800 ml Output Total 4000 ml Balance 960 ml -3200 ml Intake Oral 960 ml 800 ml Output Hemodialysis UF 4000 ml Height (Feet): 5 Height (Inches): 11.00 Weight (Pounds): 322 Medications Current Medications Medications (Trade) Dose Ordered Sig/Lorna Route PRN Reason Start Time Stop Time Status Last Admin Dose Admin Brimonidine Tartrate (Alphagan) 1 drop Q12HR RIGHT EYE 05/02/20 21:00 07/31/20 08:59 05/04/20 09:21 Clonidine HCl (Catapres Tab) 0.1 mg Q4H PRN ORAL For High Blood Pressure 05/02/20 16:00 07/29/20 15:59 Dextrose (Dextrose 50%) 25 ml Q30M PRN IV Hypoglycemia 05/02/20 16:00 07/30/20 15:59 Dextrose (Dextrose 50%) 50 ml Q30M PRN IV Hypoglycemia 05/02/20 16:00 07/30/20 15:59 Heparin Sodium (Porcine) (Heparin 5000 units/ml) 5,000 units EVERY 12 HOURS SUBQ 05/03/20 09:00 06/16/20 08:59 05/04/20 08:36 Heparin Sodium (Porcine) (Heparin Sod 1000 units/ml 10ml) 2,000 unit ONCE PRN IV HD USE 05/02/20 16:00 05/07/20 15:59 05/04/20 03:04 Heparin Sodium (Porcine) (Heparin Sod 1000 units/ml 10ml) 2,000 unit ONCE PRN IV HD 05/04/20 06:00 05/04/20 23:59 Hydralazine HCl (Apresoline) 25 mg Q6H PRN ORAL SBP above 150 05/04/20 00:45 08/02/20 00:44 Hydromorphone HCl (Dilaudid) 1 mg Q4H PRN IVP Severe Pain (Pain Scale 7-10) 05/02/20 16:00 05/08/20 15:59 05/04/20 07:41 Ibuprofen (Motrin) 800 mg Q8H PRN ORAL Moderate Pain (Pain Scale 4-6) 05/02/20 16:00 06/01/20 15:59 Insulin Aspart (NovoLOG) BEFORE MEALS AND HS SUBQ 05/02/20 16:30 07/30/20 20:59 05/04/20 11:34 Insulin Detemir (Levemir) 60 units BID SUBQ 05/02/20 18:00 07/30/20 08:59 05/04/20 08:37 Lactulose (Cephulac) 30 gm THREE TIMES A DAY PRN ORAL Constipation 05/02/20 18:00 9/2/20 22:14 Metoprolol Tartrate (Lopressor) 50 mg Q12HR ORAL 05/02/20 21:00 07/30/20 08:59 05/04/20 08:35 Ondansetron HCl (Zofran) 4 mg Q6H PRN IVP Nausea & Vomiting 05/02/20 16:15 05/30/20 22:14 Sennosides (Senokot) 8.6 mg DAILY PRN ORAL Constipation 05/02/20 16:00 06/01/20 15:59 05/04/20 08:35 Sevelamer Carbonate (Renvela) 2,400 mg THREE TIMES A DAY ORAL 05/02/20 18:00 07/30/20 08:59 05/04/20 08:34 Sodium Chloride 1,000 ml @ 500 mls/hr Q2H PRN IVLG sbp<90 during hd 05/02/20 16:00 06/01/20 15:59 Sodium Chloride 1,000 ml @ 500 mls/hr Q2H PRN IVLG sbp<90 during hd 05/04/20 06:00 05/04/20 23:59 Timolol Maleate (timoloL maleate 0.5% Op Soln) 1 drop Q12HR RIGHT EYE 05/02/20 21:00 06/01/20 08:59 05/04/20 09:22 Assessment/Plan Problem List: (1) Wound of right foot Assessment & Plan: This is a 35 year old male morbidly obese pt whom presented on admission with Full thickness 3ulcer Medial R malleolus. R foot deformity noted Charcot foot. Base of wound is helen -no exudate noted(L)2.9cm x (W)2.3cm. Surrounding areas of wound is indurated with scattered necrosis with additional necrotic cap, that is indurated, laterally clockwise at approx 8-9o'clock clockwise of wound. Wound in its entirety measures (L)4.5cm x (W)6.4cm. NO odor noted.NO erythema noted periwound. Skin is otherwise dry and cracked. Pt stated he has been receiving in-home wound care for more than a year and stated wound has not improved or declined. Pt wears Cam-Walker boot R foot when ambulating. Tx.Plan: Apply Betadine to wound. Cover with ABD Pad.Wrap with Kerlix Daily and prn. tight glucose control precautions given and patient understanding outpatient f/u for wound management will follow with recs thank you ICD Codes: S91.301A - Unspecified open wound, right foot, initial encounter SNOMED: 159765622, 677479824 (2) End stage kidney disease ICD Codes: N18.6 - End stage renal disease SNOMED: 54821945 (3) Contusion ICD Codes: T14.8XXA - Other injury of unspecified body region, initial encounter SNOMED: 971065560 (4) CHF (congestive heart failure) ICD Codes: I50.9 - Heart failure, unspecified SNOMED: 33821825 (5) Obstructive sleep apnea ICD Codes: G47.33 - Obstructive sleep apnea (adult) (pediatric) SNOMED: 98496122 (6) Nephropathy due to secondary diabetes ICD Codes: E13.21 - Other specified diabetes mellitus with diabetic nephropathy SNOMED: 6558685, 297259819 (7) Morbid obesity due to excess calories ICD Codes: E66.01 - Morbid (severe) obesity due to excess calories SNOMED: 940759499, 784150124 Mukund Hodgson May 04, 2020 12:01
[2020-05-05] VITALS: BP 115/74
--- NOTE | 2020-05-05 02:08 | Cardiology Progress Note ---
Subjective DATE OF SERVICE: May 04, 2020 Still with pain requiring IV medx. BP lability persists. 2DEcho with small amount of right sided pericardial fluid. CT chest reveals right lung atelectasis. Has Chest pain with and without movement and still c/o SOB. Objective Last 24 Hour Vital Signs Date Time Temp Pulse Resp B/P (MAP) Pulse Ox O2 Delivery O2 Flow Rate FiO2 05/05/20 00:00 80 05/05/20 00:00 98.6 81 17 115/74 (88) 96 05/04/20 22:23 82 126/76 05/04/20 21:00 Room Air 05/04/20 20:00 88 05/04/20 20:00 98.7 89 18 124/69 (87) 96 05/04/20 18:05 98.4 05/04/20 16:00 98.4 84 18 121/57 (78) 97 05/04/20 16:00 83 05/04/20 12:00 98.4 87 19 151/77 (101) 95 05/04/20 12:00 78 05/04/20 09:00 Room Air 05/04/20 08:35 89 134/89 05/04/20 08:00 91 05/04/20 08:00 99.4 91 18 167/104 (125) 97 05/04/20 04:00 82 05/04/20 04:00 97.6 78 18 141/80 (100) 96 HEENT: normal ENT inspection, other - blind LUNGS: no respiratory distress, diminished breath sounds - right CARDIAC: normal rate, regular rhythm, normal S1 and S2 ABDOMEN: normal bowel sounds, non tender, soft, no organomegaly EXTREMITIES: normal range of motion, non-tender, other - Bruit palpable over left upper extremity AV fistula Laboratory Tests Test 05/04/20 15:55 POC Whole Blood Glucose 250 MG/DL (74-106) H Assessment/Plan Assessment/Plan Suspected orthostatic near-syncope Chest wall contusion - possible cardiac contusion Pericardial effusion may be secondary to cardiac contusion ESRD Hypertension/HHD - hypertensive urgency Blindness IRDM with multiple complications Functional LUE AV fistula Pain control Add prn antiHTN therapy HD/UF Insulin titration PT/OT Possible DC home tomorrow after dialysis, if cont'd improvement in pain control. Vahid Owusu MD May 05, 2020 02:08
[2020-05-05] MEDS: HYDROmorphone 1mg/ml Carpuject IVP PRN ×4 (03:19→16:08)
[2020-05-05 04:00] VITALS: BP 127/79
[2020-05-05] MEDS: NovoLOG Insulin Flexpen SUBQ SCH ×3 (06:34→16:30)
[2020-05-05 08:00] VITALS: BP 175/100
[2020-05-05] MEDS: timoloL maleate 0.5% Op Soln 2.5ml RIGHT EYE SCH (09:00)
[2020-05-05] MEDS: Brimonidine 0.2% Opth Sol RIGHT EYE SCH (09:47)
[2020-05-05] MEDS: Metoprolol Tartrate 50mg tab ORAL SCH (09:47)
[2020-05-05] MEDS: Heparin 5000 units/ml inj SUBQ SCH (09:49)
[2020-05-05] MEDS: Levemir Flexpen SUBQ SCH (09:50)
--- NOTE | 2020-05-05 11:05 | Surgery Progress Note ---
Surgery Progress Note Subjective Additional Comments no acute events comfortable resting labs noted Objective Last 24 Hour Vital Signs Date Time Temp Pulse Resp B/P (MAP) Pulse Ox O2 Delivery O2 Flow Rate FiO2 05/05/20 09:47 76 127/79 05/05/20 09:00 Room Air 05/05/20 08:00 83 05/05/20 08:00 96.7 80 17 175/100 (125) 98 05/05/20 04:00 97.9 75 14 127/79 (95) 93 05/05/20 04:00 76 05/05/20 00:00 80 05/05/20 00:00 98.6 81 17 115/74 (88) 96 05/04/20 22:23 82 126/76 05/04/20 21:00 Room Air 05/04/20 20:00 88 05/04/20 20:00 98.7 89 18 124/69 (87) 96 05/04/20 18:05 98.4 05/04/20 16:00 98.4 84 18 121/57 (78) 97 05/04/20 16:00 83 05/04/20 12:00 98.4 87 19 151/77 (101) 95 05/04/20 12:00 78 I&O Intake and Output 05/04/20 05/05/20 19:00 07:00 Intake Total 700 ml 360 ml Balance 700 ml 360 ml Intake Oral 700 ml Other 360 ml Dressing: dry Wound: clean Cardiovascular: RSR Respiratory: clear Abdomen: soft, non-tender, present bowel sounds Extremities: edema, no cyanosis, other Laboratory Tests Test 05/04/20 15:55 POC Whole Blood Glucose 250 MG/DL (74-106) H Plan Problems: (1) Wound of right foot Assessment & Plan: This is a 35 year old male morbidly obese pt whom presented on admission with Full thickness 3ulcer Medial R malleolus. R foot deformity noted Charcot foot. Base of wound is ehlen -no exudate noted(L)2.9cm x (W)2.3cm. Surrounding areas of wound is indurated with scattered necrosis with additional necrotic cap, that is indurated, laterally clockwise at approx 8-9o'clock clockwise of wound. Wound in its entirety measures (L)4.5cm x (W)6.4cm. NO odor noted.NO erythema noted periwound. Skin is otherwise dry and cracked. Pt stated he has been receiving in-home wound care for more than a year and stated wound has not improved or declined. Pt wears Cam-Walker boot R foot when ambulating. Tx.Plan: Apply Betadine to wound. Cover with ABD Pad.Wrap with Kerlix Daily and prn. tight glucose control precautions given and patient understanding outpatient f/u for wound management will follow with recs thank you (2) End stage kidney disease (3) Contusion (4) CHF (congestive heart failure) (5) Obstructive sleep apnea (6) Nephropathy due to secondary diabetes (7) Morbid obesity due to excess calories Mukund Hodgson May 05, 2020 11:05
[2020-05-05 12:00] VITALS: BP 149/82
[2020-05-05 12:29] LABS: BASOPHILS % (AUTO) 1.3 % (0.0-2.0); EOSINOPHILS % (AUTO) 1.8 % (0.0-3.0); HEMATOCRIT 45.4 % (42.0-52.0); HEMOGLOBIN 14.3 G/DL (14.2-18.0); LYMPHOCYTES % (AUTO) 10.3 % (20.0-45.0); MEAN CORPUSCULAR VOLUME 104 FL (80-99); MONOCYTES % (AUTO) 8.8 % (1.0-10.0); NEUTROPHILS % (AUTO) 77.8 % (45.0-75.0); PLATELET COUNT 219 K/UL (150-450); RED BLOOD COUNT 4.35 M/UL (4.70-6.10); RED CELL DISTRIBUTION WIDTH 14.7 % (11.6-14.8); WHITE BLOOD COUNT 10.9 K/UL (4.8-10.8)
[2020-05-05 12:46] LABS: ALANINE AMINOTRANSFERASE 18 U/L (12-78); ALBUMIN 3.1 G/DL (3.4-5.0); ALBUMIN/GLOBULIN RATIO 0.6 (1.0-2.7); ALKALINE PHOSPHATASE 116 U/L (46-116); ANION GAP 11 mmol/L (5-15); ASPARTATE AMINO TRANSFERASE 24 U/L (15-37); BILIRUBIN,TOTAL 0.5 MG/DL (0.2-1.0); BLOOD UREA NITROGEN 61 mg/dL (7-18); CALCIUM 9.1 MG/DL (8.5-10.1); CARBON DIOXIDE 26 MMOL/L (21-32); CHLORIDE 96 MMOL/L (98-107); CREATININE 10.4 MG/DL (0.55-1.30); POTASSIUM 5.3 MMOL/L (3.5-5.1); SODIUM 133 MMOL/L (136-145)
--- NOTE | 2020-05-05 14:22 | Nephrology Progress Note ---
Assessment/Plan Problem List: (1) Obstructive sleep apnea (2) Morbid obesity due to excess calories (3) Nephropathy due to secondary diabetes (4) CHF (congestive heart failure) (5) End stage kidney disease (6) Contusion Plan continue with frequent dialysis as chronic fluid overload,UF -4000 last pm, cpap, pain regimen per dr newell, low grade temp states he has chronic dental infection and r foot wound seen regularly by precision assembly inspector, says he wants more fluid removed and weight is higher Subjective Constitutional: Reports: other - chest discomfort HEENT: Reports: no symptoms Genitourinary: Reports: no symptoms Neurologic/Psychiatric: Reports: no symptoms Objective Objective Last 24 Hour Vital Signs Date Time Temp Pulse Resp B/P (MAP) Pulse Ox O2 Delivery O2 Flow Rate FiO2 05/05/20 12:00 83 05/05/20 12:00 96.7 102 20 149/82 (104) 98 05/05/20 09:47 76 127/79 05/05/20 09:00 Room Air 05/05/20 08:00 83 05/05/20 08:00 96.7 80 17 175/100 (125) 98 05/05/20 04:00 97.9 75 14 127/79 (95) 93 05/05/20 04:00 76 05/05/20 00:00 80 05/05/20 00:00 98.6 81 17 115/74 (88) 96 05/04/20 22:23 82 126/76 05/04/20 21:00 Room Air 05/04/20 20:00 88 05/04/20 20:00 98.7 89 18 124/69 (87) 96 05/04/20 18:05 98.4 05/04/20 16:00 98.4 84 18 121/57 (78) 97 05/04/20 16:00 83 Intake and Output 05/04/20 05/05/20 19:00 07:00 Intake Total 700 ml 360 ml Balance 700 ml 360 ml Intake Oral 700 ml Other 360 ml Laboratory Tests 05/04/20 15:55: POC Whole Blood Glucose 250H 05/05/20 11:50: POC Whole Blood Glucose 271H 05/05/20 12:15: White Blood Count 10.9H, Red Blood Count 4.35L, Hemoglobin 14.3, Hematocrit 45.4 , Mean Corpuscular Volume 104H, Mean Corpuscular Hemoglobin 32.8H, Mean Corpuscular Hemoglobin Concent 31.4L, Red Cell Distribution Width 14.7, Platelet Count 219, Mean Platelet Volume 8.6, Neutrophils (%) (Auto) 77.8H, Lymphocytes (%) (Auto) 10.3L, Monocytes (%) (Auto) 8.8, Eosinophils (%) (Auto) 1.8, Basophils (%) (Auto) 1.3, Erythrocyte Sedimentation Rate 28H, Sodium Level 133L, Potassium Level 5.3H, Chloride Level 96L, Carbon Dioxide Level 26, Anion Gap 11, Blood Urea Nitrogen 61H, Creatinine 10.4H, Estimat Glomerular Filtration Rate 5.6, Glucose Level 298H, Calcium Level 9.1, Total Bilirubin 0.5 , Aspartate Amino Transf (AST/SGOT) 24, Alanine Aminotransferase (ALT/SGPT) 18, Alkaline Phosphatase 116, C-Reactive Protein, Quantitative 4.9H, Total Protein 7.9, Albumin 3.1L, Globulin 4.8, Albumin/Globulin Ratio 0.6L Height (Feet): 5 Height (Inches): 11.00 Weight (Pounds): 331 General Appearance: no apparent distress, alert, morbidly obese EENT: normal ENT inspection Neck: normal alignment Cardiovascular: normal rate, regular rhythm Respiratory/Chest: lungs clear Abdomen: soft Extremities: no edema Alex Martínez MD May 05, 2020 14:22
--- NOTE | 2020-05-05 20:26 | Cardiology Progress Note ---
Subjective DATE OF SERVICE: May 05, 2020 Still with pain, but much better controlled. BP lability improved. 2DEcho with small amount of right sided pericardial fluid. CT chest reveals right lung atelectasis. Has Chest pain with and without movement and still c/o SOB. Objective Last 24 Hour Vital Signs Date Time Temp Pulse Resp B/P (MAP) Pulse Ox O2 Delivery O2 Flow Rate FiO2 05/05/20 12:00 83 05/05/20 12:00 96.7 102 20 149/82 (104) 98 05/05/20 09:47 76 127/79 05/05/20 09:00 Room Air 05/05/20 08:00 83 05/05/20 08:00 96.7 80 17 175/100 (125) 98 05/05/20 04:00 97.9 75 14 127/79 (95) 93 05/05/20 04:00 76 05/05/20 00:00 80 05/05/20 00:00 98.6 81 17 115/74 (88) 96 05/04/20 22:23 82 126/76 05/04/20 21:00 Room Air HEENT: normal ENT inspection, other - blind LUNGS: no respiratory distress, diminished breath sounds - right CARDIAC: normal rate, regular rhythm, normal S1 and S2 ABDOMEN: normal bowel sounds, non tender, soft, no organomegaly EXTREMITIES: normal range of motion, non-tender, other - Bruit palpable over left upper extremity AV fistula Laboratory Tests Test 05/05/20 11:50 05/05/20 12:15 05/05/20 16:52 POC Whole Blood Glucose 271 MG/DL (74-106) H 212 MG/DL (74-106) H White Blood Count 10.9 K/UL (4.8-10.8) H Red Blood Count 4.35 M/UL (4.70-6.10) L Hemoglobin 14.3 G/DL (14.2-18.0) Hematocrit 45.4 % (42.0-52.0) Mean Corpuscular Volume 104 FL (80-99) H Mean Corpuscular Hemoglobin 32.8 PG (27.0-31.0) H Mean Corpuscular Hemoglobin Concent 31.4 G/DL (32.0-36.0) L Red Cell Distribution Width 14.7 % (11.6-14.8) Platelet Count 219 K/UL (150-450) Mean Platelet Volume 8.6 FL (6.5-10.1) Neutrophils (%) (Auto) 77.8 % (45.0-75.0) H Lymphocytes (%) (Auto) 10.3 % (20.0-45.0) L Monocytes (%) (Auto) 8.8 % (1.0-10.0) Eosinophils (%) (Auto) 1.8 % (0.0-3.0) Basophils (%) (Auto) 1.3 % (0.0-2.0) Erythrocyte Sedimentation Rate 28 MM/HR (0-15) H Sodium Level 133 MMOL/L (136-145) L Potassium Level 5.3 MMOL/L (3.5-5.1) H Chloride Level 96 MMOL/L (98-107) L Carbon Dioxide Level 26 MMOL/L (21-32) Anion Gap 11 mmol/L (5-15) Blood Urea Nitrogen 61 mg/dL (7-18) H Creatinine 10.4 MG/DL (0.55-1.30) H Estimat Glomerular Filtration Rate 5.6 mL/min (>60) Glucose Level 298 MG/DL (74-106) H Calcium Level 9.1 MG/DL (8.5-10.1) Total Bilirubin 0.5 MG/DL (0.2-1.0) Aspartate Amino Transf (AST/SGOT) 24 U/L (15-37) Alanine Aminotransferase (ALT/SGPT) 18 U/L (12-78) Alkaline Phosphatase 116 U/L (46-116) C-Reactive Protein, Quantitative 4.9 mg/dL (0.00-0.90) H Total Protein 7.9 G/DL (6.4-8.2) Albumin 3.1 G/DL (3.4-5.0) L Globulin 4.8 g/dL Albumin/Globulin Ratio 0.6 (1.0-2.7) L Assessment/Plan Assessment/Plan Suspected orthostatic near-syncope Chest wall contusion - possible cardiac contusion Pericardial effusion may be secondary to cardiac contusion - of no clinical consequence presently. ESRD Hypertension/HHD - hypertensive urgency resolved Blindness IRDM with multiple complications Functional LUE AV fistula Pain control transitioned to oral regimen Continue prn antiHTN therapy HD/UF Insulin titration PT/OT DC home today after dialysis. Vahid Owusu MD May 05, 2020 20:26
[2020-05-06] MEDS ORDERED: Heparin Sod 1000 units/ml 10ml IV ONE (14:30)
--- NOTE | 2020-05-07 15:08 | Discharge Summary ---
Discharge Summary Discharge Summary _ DATE OF ADMISSION: 04/30/2020 DATE OF DISCHARGE: 05/05/2020 DISCHARGED BY: Dr. Sandoval REASON FOR ADMISSION: 35 years old male with past medical history of end-stage renal disease, on hemodialysis, hypertension, history of eye enucleation, hypertensive heart disease, gastroparesis, Right Charcot foot, insulin dependent diabetes mellitus with diabetic neuropathy and nephropathy, presented from home with complaints of near syncopal episode. Patient was ambulating at home , felt dizzy and nearly passed out. Patient apparently fell sideways . He presented to the office with complaints of difficulty breathing and chest pain pain, which was not controlled with his medication . Due to concern of possible syncopal episode he was directly admitted for further evaluation and management. CONSULTANTS: equipment oiler: Dr Owusu safety administrator Dr. Martínez surgery Dr. Hodgson [facility] COURSE: Patient admitted to telemetry floor. Patient undergone CT chest which revealed mild hazy atelectatic changes right upper lung , but no acute cardiopulmonary disease. Troponin was negative. Telemetry revealed sinus rhythm , no acute ischemic changes . Echocardiogram revealed normal left ventricular ejection fraction. Mild left ventricular hypertrophy. No evidence of wall motion abnormalities. Small amount of right-sided pericardial fluid. Patient had chest pain with and without movement and still complained of shortness of breath. Pain management was addressed as needed. Patient initially required IV pain medication [id number]. Chest pain was most likely due to contusion. Mesh Worker followed. Venous duplex bilateral lower extremity revealed no evidence of acute DVT. VQ scan revealed no evidence of pulmonary embolism. Pulse oximetry remained stable on room air. BiPAP provided at night and was on standby as needed. Antihypertensive regimen optimized as per equipment oiler. Initial hypertensive urgency with the highest blood pressure 179/100 resolved with current antihypertensive regimne. DVT prophylaxis provided. Hemodialysis provided as per safety administrator recommendation with close monitoring of renal parameters and electrolytes. Volumes were closely monitored. Electrolytes corrected as needed. Blood sugar was managed with long-acting insulin and sliding scale of short acting insulin as needed. Fall precaution maintained. 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 Patient presented on admission with a full-thickness ulcer on the right medial malleolus. Also noted right foot deformity with Charcot foot. Wound care provided per surgeon recommendation. Patient was recommended outpatient follow-up with a surgeon for wound management. Bowel regimen instituted. Analgesics changed to oral prior to discharge. Pain controlled. Patient clinically stabilized and was ready for discharge. FINAL DIAGNOSES: Near syncope , suspected to be orthostatic Chest wall contusion Possible cardiac contusion Pericardial effusion may be secondary to cardiac contusion -no clinical consequence presently Hypertensive heart disease with hypertensive urgency -resolved End-stage renal disease, on hemodialysis Blindness Insulin-dependent diabetes mellitus with diabetic nephropathy and diabetic neuropathy Congestive heart failure Wound right foot , POA Right Charcot foot Obstructive sleep apnea Morbid obesity DISCHARGE MEDICATIONS: See Medication Reconciliation list. DISCHARGE INSTRUCTIONS: Patient was discharged home. Follow-up with a primary care provider in 1 week. Follow-up with outpatient hemodialysis as scheduled. Follow-up for wound care. I have been assigned to dictate discharge summary for this account. I was not involved in the patient's management. Alexus Paredes NP May 07, 2020 15:08
== END 2020-05-05 18:00 | disposition home or self-care (01) | DRG 314 ==
LOC: 4E 22:26 → 2E 05-02 15:11
PROC: 5A1D70Z Performance of Urinary Filtration, Intermittent, Less than 6 Hours Per Day (ICD-10-PCS; principal; 2020-05-01)
DX: S26.91XA Contusion of heart, unspecified with or without hemopericardium, initial encounter (principal); N18.6 End stage renal disease; Z68.42 Body mass index [BMI] 45.0-49.9, adult; I13.2 Hypertensive heart and chronic kidney disease with heart failure and with stage 5 chronic kidney disease, or end stage renal disease; L97.318 Non-pressure chronic ulcer of right ankle with other specified severity; Z68.41 Body mass index [BMI] 40.0-44.9, adult; S20.219A Contusion of unspecified front wall of thorax, initial encounter; W19.XXXA Unspecified fall, initial encounter; S41.119A Laceration without foreign body of unspecified upper arm, initial encounter; E11.22 Type 2 diabetes mellitus with diabetic chronic kidney disease; E11.43 Type 2 diabetes mellitus with diabetic autonomic (poly)neuropathy; K31.84 Gastroparesis; G47.33 Obstructive sleep apnea (adult) (pediatric); E66.01 Morbid (severe) obesity due to excess calories; E11.621 Type 2 diabetes mellitus with foot ulcer; I95.1 Orthostatic hypotension; Z99.2 Dependence on renal dialysis; Z79.4 Long term (current) use of insulin; E11.40 Type 2 diabetes mellitus with diabetic neuropathy, unspecified; I50.9 Heart failure, unspecified; E11.610 Type 2 diabetes mellitus with diabetic neuropathic arthropathy; Z88.8 Allergy status to other drugs, medicaments and biological substances; E11.319 Type 2 diabetes mellitus with unspecified diabetic retinopathy without macular edema; H54.61 Unqualified visual loss, right eye, normal vision left eye; Z87.891 Personal history of nicotine dependence; I70.90 Unspecified atherosclerosis; I16.0 Hypertensive urgency
CPT/HCPCS: 36415; 71250; 78579; 78580; 80048; 80053; 82962; 84484; 85025; 85651; 86140; 86706; 86803; 93005; 93306; 93970; A9503; J1815; J2405; J8499; S5561